=== PATIENT | male | born 1980 | race Two or more races ===

== ENCOUNTER 2025-09-05 14:50 | Emergency (ER) | payer OTHER ==
[~2025-09-05] VITALS: Ht 167.6 cm; Wt 102.0 kg
[2025-09-05 14:54] VITALS: TEMP 36.7; O2SAT 97
[2025-09-05] MEDS: LIDOCAINE HCL 1% 20ML VIAL INFIL ONE (15:30)
[2025-09-05] MEDS: IBUPROFEN 600MG TABLET PO ONE (15:30)
[2025-09-05] MEDS ORDERED: IBUP-2437 MT (16:52)
[2025-09-05] MEDS ORDERED: CEPH500C2 MT (16:52)
[2025-09-05 17:21] VITALS: BP 133/87; PULSE 85; RESP 16; O2SAT 100
== END 2025-09-05 17:40 | disposition home or self-care (01) ==
LOC: ER 14:50
DX: S61.012A Laceration without foreign body of left thumb without damage to nail, initial encounter (principal); W26.8XXA Contact with other sharp object(s), not elsewhere classified, initial encounter; Y93.89 Activity, other specified; Y92.89 Other specified places as the place of occurrence of the external cause; Y99.8 Other external cause status
CPT/HCPCS: 73120; 12002; 99283; J2003; Z7610